=== PATIENT | male | born 1985 | race Two or more races ===

== ENCOUNTER 2017-02-18 17:17 | Emergency (ER) | payer MEDICAID ==
[~2017-02-18] VITALS: Ht 177.8 cm; Wt 80.0 kg
[2017-02-18] MEDS ORDERED: IBUPROFEN 600MG TABLET PO ONE (18:45)
[2017-02-18 20:00] VITALS: BP 134/64
== END 2017-02-18 20:10 | disposition home or self-care (01) ==
LOC: ER 17:40
DX: S46.912A Strain of unspecified muscle, fascia and tendon at shoulder and upper arm level, left arm, initial encounter (principal); V49.00XA Driver injured in collision with unspecified motor vehicles in nontraffic accident, initial encounter; Y93.89 Activity, other specified; Y92.89 Other specified places as the place of occurrence of the external cause; Y99.8 Other external cause status
CPT/HCPCS: 72110; 73030; 99284

== ENCOUNTER 2017-12-10 06:34 | Emergency (ER) | payer MEDICAID ==
[~2017-12-10] VITALS: Ht 182.9 cm; Wt 91.0 kg
[2017-12-10 06:53] VITALS: BP 121/76
== END 2017-12-10 11:25 | disposition home or self-care (01) ==
LOC: ER 06:34
DX: K40.90 Unilateral inguinal hernia, without obstruction or gangrene, not specified as recurrent (principal)
CPT/HCPCS: 99281